=== PATIENT | male | born 1975 | race Caucasian/White ===

== ENCOUNTER 2018-06-03 17:17 | Emergency (ER) | payer OTHER ==
[~2018-06-03] VITALS: Ht 175.3 cm; Wt 85.0 kg
[2018-06-03 17:31] VITALS: TEMP 37.3; Ht 175.3 cm; Wt 85.0 kg
[2018-06-03] MEDS ORDERED: WARF4TAB43 PO (19:03)
[2018-06-03] MEDS ORDERED: HALO5TAB PO ×2 (19:03)
[2018-06-03] MEDS ORDERED: BENZ-89 PO (19:03)
[2018-06-03] MEDS ORDERED: WARF-281 PO (19:03)
[2018-06-03 19:21] LABS: INR > 10.0 (0.9-1.1)
[2018-06-03 20:07] LABS: EOS % 1.1 %; EOS ABS # 0.05 K/uL (0-0.5); HEMATOCRIT 42.8 % (42-52); HEMOGLOBIN 14.2 g/dL (14.0-18.0); IG# 0.01 K/uL (0.00-0.02); LYMPH % 12.3 %; LYMPH ABS # 0.57 K/uL (1.2-3.4); MEAN CELL VOLUME 95.3 fL (80-100); MEAN CORPUSCULAR HEMOGLOBIN 31.6 pg (25-34); MEAN CORPUSCULAR HGB CONC 33.2 g/dl (32-36); MEAN PLATELET VOLUME 10.5 fL (7.4-10.4); MONO % 7.5 %; MONO ABS # 0.35 K/uL (0.11-0.59); NEUT % 78.9 %; NEUT ABS # 3.66 K/uL (1.4-6.5); PLATELET COUNT 212 K/uL (130-400); RED CELL DISTRIBUTION WIDTH CV 13.1 % (11.5-14.5); RED CELL DISTRIBUTION WIDTH SD 45.5 fL (36.4-46.3); WHITE BLOOD COUNT 4.64 K/uL (4.8-10.8)
[2018-06-03 20:30] LABS: ALBUMIN 3.5 gm/dl (3.4-5.0); CALCIUM 8.5 mg/dl (8.5-10.1); CREATININE 1.01 mg/dl (0.60-1.40); POTASSIUM 4.6 mmol/L (3.5-5.1); TOTAL PROTEIN 7.5 gm/dl (6.4-8.2)
--- NOTE | 2018-06-03 20:31 | EMERGENCY ROOM VISIT NOTE ---
History First contact with patient: 17:35 Chief Complaint: ABNORMAL LABS Stated Complaint: EMBOLISM AND THROMBOSIS History of Present Illness The patient is a 43 year old male who presents to the Emergency Room with complaints of possibly elevated INR. Patient is on Coumadin 12 mg nightly for quite some time. Patient states the alf nurse checked his INR today and was told it was high. He was sent in here. Patient denies chest pain, dyspnea, unexplained bleeding or bruising or any other medical complaints. He states he feels fine. No new foods or medications. Review of Systems An 10 system review of systems was completed with positives and pertinent negatives listed in the HPI. Past Medical/Surgical History DVT, PE, schizophrenia, green filter Social History Smoking Status: Never Smoker Marital Status: single Occupation Status: other (Prisoner) Current/Historical Medications Scheduled Benztropine Mesylate (Cogentin), 1 MG PO BID Haloperidol (Haldol), 7.5 MG PO DAILY Haloperidol (Haldol), 10 MG PO HS Warfarin Sodium (Warfarin Sodium), 2 MG PO HS Warfarin Sodium (Warfarin Sodium), 10 MG PO HS Physical Exam Vital Signs Date Time Temp Pulse Resp B/P (MAP) Pulse Ox O2 Delivery O2 Flow Rate FiO2 06/03/18 19:17 78 18 132/92 97 Room Air 06/03/18 17:31 37.3 98 18 139/100 96 Room Air Physical Exam VITALS: Vitals are noted on the nurse's note and reviewed by myself. Vital signs stable. GENERAL: Male in shackles, in no acute distress, nondiaphoretic, well-developed well-nourished. SKIN: Capillary reflex less than 2 seconds. HEENT: Normocephalic. PERRLA. EOMI. Nares patent. Mucous membranes moist. Neck is supple without nuchal rigidity. HEART: Regular rate and rhythm without murmurs gallops or rubs. LUNGS: Clear to auscultation bilaterally without wheezes, rales or rhonchi. No retractions or accessory muscle use. ABDOMEN: Positive bowel sounds x 4. Normal tympanic percussion. Soft, nontender, without masses or organomegaly. Wilson sign negative. No guarding or rebound tenderness. MUSCULOSKELETAL: No gross musculoskeletal defects. NEURO: Patient was alert and oriented to person place and time. Normal sensation to light and sharp touch. No focal neurological deficits. Medical Decision & Procedures Laboratory Results 06/03/18 18:33 Red Blood Count 4.49, Mean Corpuscular Volume 95.3, Mean Corpuscular Hemoglobin 31.6, Mean Corpuscular Hemoglobin Concent 33.2, Mean Platelet Volume 10.5, Neutrophils (%) (Auto) 78.9, Lymphocytes (%) (Auto) 12.3, Monocytes (%) (Auto) 7.5, Eosinophils (%) (Auto) 1.1, Basophils (%) (Auto) 0.0, Neutrophils # (Auto) 3.66, Lymphocytes # (Auto) 0.57, Monocytes # (Auto) 0.35, Eosinophils # (Auto) 0.05, Basophils # (Auto) 0.00 06/03/18 18:33 Test 06/03/18 18:05 06/03/18 18:33 Prothrombin Time > 100.0 SECONDS Prothromb Time International Ratio > 10.0 (0.9-1.1) White Blood Count 4.64 K/uL (4.8-10.8) Red Blood Count 4.49 M/uL (4.7-6.1) Hemoglobin 14.2 g/dL (14.0-18.0) Hematocrit 42.8 % (42-52) Mean Corpuscular Volume 95.3 fL (80-100) Mean Corpuscular Hemoglobin 31.6 pg (25-34) Mean Corpuscular Hemoglobin Concent 33.2 g/dl (32-36) Platelet Count 212 K/uL (130-400) Mean Platelet Volume 10.5 fL (7.4-10.4) Neutrophils (%) (Auto) 78.9 % Lymphocytes (%) (Auto) 12.3 % Monocytes (%) (Auto) 7.5 % Eosinophils (%) (Auto) 1.1 % Basophils (%) (Auto) 0.0 % Neutrophils # (Auto) 3.66 K/uL (1.4-6.5) Lymphocytes # (Auto) 0.57 K/uL (1.2-3.4) Monocytes # (Auto) 0.35 K/uL (0.11-0.59) Eosinophils # (Auto) 0.05 K/uL (0-0.5) Basophils # (Auto) 0.00 K/uL (0-0.2) RDW Standard Deviation 45.5 fL (36.4-46.3) RDW Coefficient of Variation 13.1 % (11.5-14.5) Immature Granulocyte % (Auto) 0.2 % Immature Granulocyte # (Auto) 0.01 K/uL (0.00-0.02) Anion Gap 6.0 mmol/L (3-11) Est Creatinine Clear Calc Drug Dose 99.9 ml/min Estimated GFR () 103.6 Estimated GFR (Non- 89.4 BUN/Creatinine Ratio 7.2 (10-20) Calcium Level 8.5 mg/dl (8.5-10.1) Total Bilirubin 0.2 mg/dl (0.2-1) Aspartate Amino Transf (AST/SGOT) 23 U/L (15-37) Alanine Aminotransferase (ALT/SGPT) 45 U/L (12-78) Alkaline Phosphatase 105 U/L (45-117) Total Protein 7.5 gm/dl (6.4-8.2) Albumin 3.5 gm/dl (3.4-5.0) Globulin 4.0 gm/dl (2.5-4.0) Albumin/Globulin Ratio 0.9 (0.9-2) Chemistry Specimen Hemolysis ED Course Prior records reviewed and summarized as above. Triage Nursing notes reviewed. Additional history obtained from correction officers The patient's history was concerning for possible lab abnormality Differential diagnosis: Etiologies such as lab abnormality, supratherapeutic INR, coagulopathy, liver problem as well as others were entertained.. Physical examination: As above ER treatment provided: Patient was observed On reassessment the patient felt better. Diagnostics interpreted by me: The labs revealed supratherapeutic INR Stable H&H. No leukocytosis. I spoke to the pharmacist, Antwon, and recommends holding the Coumadin for 2 days and rechecking the INR. I also contacted the alf and spoke to the nurse, Kimberly, and informed her to hold the Coumadin for the next 2 days and recheck the INR. She verbalized understanding of this. This appears to be supratherapeutic INR. Patient had no medical complaints. Patient was neurovascularly and neurologically intact. He is well-appearing. He had no active bleeding. He was advised to hold his Coumadin for the next 2 days and recheck his INR with the alf nurse or doctor in 2 days. He was advised to return to the ER immediately for bleeding, chest pains, difficulty breathing, worsening signs or symptoms or as needed. By the evaluation outlined above emergent etiologies such as liver disorder as well as others were deemed relatively unlikely. The pt informed about the findings as listed above. All questions were answered and pleased with the treatment. Return instructions were outlined and the patient was discharged in stable condition. Referral: The patient was referred back to alf doctor/ primary care physician for follow-up in 2 days for a recheck of the current condition. The chart was completed utilizing [employer] Speech voice recognition software. Grammatical errors, random word insertions, pronoun errors, and incomplete sentences are an occassional consequence of this system due to software limitations, ambient noise, and hardware issues. Any formal questions or concerns about the content, text, or information contained within the body of this dictation should be directly addressed to the physician secretary administrative assistant for clarification. Case reviewed with my attending. Medical Decision As above Medication Reconcilliation Current Medication List: was personally reviewed by me Blood Pressure Screening Patient's blood pressure: Normal blood pressure Impression Primary Impression: Supratherapeutic INR Departure Information Dispostion Home / Self-Care Referrals Da GAY (PCP) Patient Instructions [facility] Additional Instructions Hold your Coumadin for the next 2 days. Recheck your INR in 2 days with the alf nurse or doctor. Return to ER sooner for bleeding, chest pain, difficulty breathing, worsening signs or symptoms or as needed.
[2018-06-03 20:38] VITALS: BP 133/102; PULSE 84; O2SAT 99
== END 2018-06-03 20:39 | disposition home or self-care (01) ==
LOC: C.EDB 17:20
DX: R79.1 Abnormal coagulation profile (principal); Z86.718 Personal history of other venous thrombosis and embolism; Z86.711 Personal history of pulmonary embolism; F20.9 Schizophrenia, unspecified; Z79.01 Long term (current) use of anticoagulants; Z79.899 Other long term (current) drug therapy

== ENCOUNTER → 2018-06-03 | Outpatient (CLI) | payer OTHER ==
[~2018-06-03] MED LIST: BENZ-89 PO; HALO5TAB PO; WARF-281 PO; WARF4TAB43 PO
[2018-06-03 15:58] LABS: INR > 10.0 (0.9-1.1)
== END ==
LOC: C.LABSPEC 10:40
PROVIDERS: ATTEND Family Medicine
DX: R79.1 Abnormal coagulation profile (principal)

== ENCOUNTER → 2018-06-13 | Outpatient (CLI) | payer OTHER ==
[2018-06-13 12:40] LABS: INR > 10.0 (0.9-1.1)
--- NOTE | 2018-06-22 08:47 | CODING QUERY NO DIAGNOSIS ---
TREATMENT RENDERED WITHOUT A DIAGNOSIS To promote full compliance with coding requirements relating to patient care, physician participation is requested in all cases of executive relations specialist uncertainty. Please assist us with providing a diagnosis/symptom for the test(s) below: A diagnosis/symptom was not documented on your Order. A valid diagnosis/symptom is required to bill all insurances. Please remember that we are unable to code a diagnosis of rule out, probable, possible, questionable, or suspected. Attention: Kenya NOLAND Tests that require a diagnosis: DOS: 06/13/18 (Attached order is missing diagnosis) * Prothrombin Time DIAGNOSIS: Provider Signature: Date: Thank you Deanna Bullard Health Information Management Once completed, please kindly fax back to [phone] For questions please call [phone]
== END ==
LOC: C.LABSPEC 11:41
PROVIDERS: ATTEND Nurse Practitioner Adult Health
DX: Z01.89 Encounter for other specified special examinations (principal)